=== PATIENT | female | born 1985 | race Caucasian/White ===

== ENCOUNTER 2017-10-31 08:28 | Emergency (ER) | payer MEDICAID | END 2017-10-31 10:45 | disposition home or self-care (01) | LOC: FTE 08:28 | DX: J02.9 Acute pharyngitis, unspecified (principal) | CPT/HCPCS: 99283; Z7502 ==

== ENCOUNTER 2019-06-13 14:34 | Emergency (ER) | payer MEDICAID ==
[2019-06-13 15:43] LABS: URINE PH (Dip) POC 6.5 (5.0-8.5)
[2019-06-13 15:43] LABS: URINE BLOOD (Dip) POC 2+ (NEGATIVE); URINE GLUCOSE (Dip) POC Negative (NEGATIVE); URINE KETONES (Dip) POC Negative (NEGATIVE); URINE LEUKOCYTE EST (Dip) POC Negative (NEGATIVE); URINE NITRITE (Dip) POC Negative (NEGATIVE); URINE TOTAL PROTEIN POC Negative (NEGATIVE)
== END 2019-06-13 16:30 | disposition home or self-care (01) ==
LOC: FTE 14:34
DX: N89.9 Noninflammatory disorder of vagina, unspecified (principal)
CPT/HCPCS: 81003; 81025; 99283